=== PATIENT | male | born 2000 | race Caucasian/White ===

== ENCOUNTER 2018-09-06 11:03 | Emergency (ER) | payer BC ==
[~2018-09-06] VITALS: Ht 165.1 cm; Wt 76.2 kg
[2018-09-06 11:35] VITALS: Ht 165.1 cm; Wt 76.2 kg
[2018-09-06 13:52] VITALS: BP 130/80
== END 2018-09-06 13:52 | disposition home or self-care (01) ==
LOC: ED 11:03
DX: J03.90 Acute tonsillitis, unspecified (principal); R03.0 Elevated blood-pressure reading, without diagnosis of hypertension; R51 Headache
CPT/HCPCS: J0561; J1100